=== PATIENT | male | born 1940 | race Two or more races ===

== ENCOUNTER 2021-12-27 16:42 | Emergency (ER) | payer MEDICARE, OTHER ==
[~2021-12-27] VITALS: Ht 185.4 cm; Wt 73.9 kg
[~2021-12-27 16:42] MED LIST: ASPI81TA31 PO; ATOR20TA PO; CLOP75TA15 PO; METO100T7 PO; VALS1TAB7 PO
--- NOTE | 2021-12-27 17:17 | NUR ---
Patient discharged to home in stable condition and slow steady gait. Written and verbal after care instructions given. Patient verbalized understanding and compliance of instructions. Stressed follow up primary doctor and ortho doctor or return to ER for worsening s/s.
== END 2021-12-27 17:17 | disposition home or self-care (01) ==
LOC: ER 16:45
DX: S89.91XA Unspecified injury of right lower leg, initial encounter (principal); W18.49XA Other slipping, tripping and stumbling without falling, initial encounter; Y93.01 Activity, walking, marching and hiking; Y92.89 Other specified places as the place of occurrence of the external cause; E11.9 Type 2 diabetes mellitus without complications; I10 Essential (primary) hypertension; Z79.02 Long term (current) use of antithrombotics/antiplatelets; Z79.82 Long term (current) use of aspirin; Z79.899 Other long term (current) drug therapy
CPT/HCPCS: A4663